=== PATIENT | female | born 1960 ===

== ENCOUNTER 2021-11-25 12:17 | Observation (INO) ==
[2021-11-25 14:53] LABS: ABS Basophils 0.1 10^3/ul (0-0.2); ABS Lymphocytes 2.4 10^3/ul (1.0-4.8); ABS Monocytes 0.7 10^3/ul (0-0.8); ABS Neutrophils 9.9 10^3/ul (1.5-7.7); Eosinophil % 0.1 %; Hematocrit 42 % (35-47); Hemoglobin 14.3 g/dL (12.0-16.0); Lymphocyte % 18.2 %; Mean Corpuscular HGB Conc 34 g/dL (31-36); Mean Corpuscular Hemoglobin 31 pg (27-31); Mean Corpuscular Volume 92 fL (80-97); Mean Platelet Volume 9.7 fL (7.4-10.4); Platelet Count 335 10^3/uL (150-450); Red Blood Count 4.56 10^6 /uL (3.70-4.87); Red Cell Distribution Width 14 % (10-15); White Blood Count 13.1 10^3/uL (3.5-10.8)
[2021-11-25 15:12] LABS: ALT 19 U/L (7-52); Albumin 4.2 g/dL (3.2-5.2); Albumin/Globulin Ratio 1.7 (1-3); Alkaline Phosphatase 57 U/L (35-149); Blood Urea Nitrogen 13 mg/dL (6-24); CO2 Carbon Dioxide 27 mmol/L (22-32); Calcium 9.3 mg/dL (8.6-10.3); Chloride 105 mmol/L (101-111); Globulin 2.5 g/dL (2-4); Glucose 112 mg/dL (70-100); Sodium 137 mmol/L (135-145); Total Protein 6.7 g/dL (6.4-8.9); eGFR CKD-EPI 81.7 (>60)
[2021-11-25 15:15] LABS: High Sens Troponin Baseline 4 pg/mL (<15)
[2021-11-25 15:21] LABS: Anion Gap 5 mmol/L (2-11)
[2021-11-25 16:53] LABS: Potassium Redraw 4.8 mmol/L (3.5-5.0)
[2021-11-25] MEDS ORDERED: Albuterol HFA INHALER 8 gm MDI INH ONE (18:08)
[2021-11-25 20:45] LABS: Cholesterol 204 mg/dL; LDL Cholesterol 130 mg/dL; Triglycerides 106 mg/dL
[2021-11-25] MEDS ORDERED: Enoxaparin 40 MG/0.4 ML SYR SUBCUT SCH (21:00)
[2021-11-25 21:01] LABS: TSH Ultra Thyroid Stim Horm 0.64 mcIU/mL (0.34-5.60)
[2021-11-25 21:03] LABS: Free T4 0.97 ng/dL (0.61-1.12)
[2021-11-25] MEDS ORDERED: Albuterol HFA INHALER 8 gm MDI INH PRN (21:12)
[2021-11-26] MEDS: Mometasone 220 MCG MDI INH SCH ×2 (01:25→21:00)
[2021-11-26] MEDS ORDERED: Omeprazole 20 mg CAP (NF) PO SCH (06:00)
[2021-11-26] MEDS ORDERED: Regadenoson 0.4 MG/5 ML SYRINGE ONE (07:33)
[2021-11-26] MEDS ORDERED: Aminophylline 25 MG/ML VIAL ONE (07:34)
[2021-11-26 08:58] LABS: ABS Basophils 0.1 10^3/ul (0-0.2); ABS Eosinophils 0.2 10^3/ul (0-0.6); ABS Lymphocytes 4.3 10^3/ul (1.0-4.8); ABS Neutrophils 7.8 10^3/ul (1.5-7.7); Eosinophil % 1.8 %; Hematocrit 41 % (35-47); Hemoglobin 13.7 g/dL (12.0-16.0); Lymphocyte % 32.2 %; Mean Corpuscular HGB Conc 33 g/dL (31-36); Mean Corpuscular Hemoglobin 31 pg (27-31); Mean Corpuscular Volume 93 fL (80-97); Mean Platelet Volume 9.6 fL (7.4-10.4); Platelet Count 307 10^3/uL (150-450); Red Blood Count 4.47 10^6 /uL (3.70-4.87); Red Cell Distribution Width 14 % (10-15); White Blood Count 13.4 10^3/uL (3.5-10.8)
[2021-11-26 09:20] LABS: Calcium 9.2 mg/dL (8.6-10.3); Potassium 4.4 mmol/L (3.5-5.0); eGFR CKD-EPI 70.3 (>60)
[2021-11-26 11:18] VITALS: BP 132/92
[2021-11-27] MEDS ORDERED: Aspirin EC 81 mg TAB.EC (enteric coated) PO SCH (09:00)
== END 2021-11-26 23:17 | disposition home or self-care (01) ==
LOC: ED 12:17 → EDHOLD 12:17 → SUATTDRO 20:17 → MEDTELE 22:00
PROVIDERS: ADMIT Physician Assistant; ATTEND Internal Medicine